=== PATIENT | male | born 1990 | race Caucasian/White ===

== ENCOUNTER 2020-12-29 15:59 | Observation (INO) ==
[2020-12-29 17:19] LABS: Basophils % 0.1 %; Hematocrit 27.7 % (37.5-50.1); Hemoglobin 8.1 g/dL (12.9-16.9); Immature Granulocytes % 0.9 % (0-4); Lymphocytes # 0.4 K/mcL (0.6-4.6); Lymphocytes % 3.8 %; Mean Corpuscular HGB Conc 29.2 g/dL (31.6-35.5); Mean Corpuscular Hemoglobin 20.1 pg (28.0-33.3); Mean Corpuscular Volume 68.9 fL (83.0-100.0); Mean Platelet Volume 10.7 fL (9.4-12.4); Monocytes # 0.1 K/mcL (0.0-1.3); Monocytes % 1.1 %; Neutrophils # 10.5 K/mcL (1.6-8.9); Platelet Count 311 K/mcL (140-400); Red Blood Count 4.02 M/mcL (4.19-5.50); Red Cell Distribution Width 17.1 % (11.5-14.5); Segmented Neutrophils % 94.1 %
[2020-12-29 17:20] LABS: White Blood Count 11.1 K/mcL (4.3-11.1)
[2020-12-29 17:36] LABS: Anisocytosis 1+ (Not Present); Hypochromasia Present (Not Present); Microcytosis Present (Not Present); Platelet Estimate Normal (Normal)
[2020-12-29 17:37] LABS: Polychromasia 1+ (Not Present)
[2020-12-29 17:55] LABS: BUN/Creatinine Ratio 15 (6-26); Bilirubin,Direct 0.1 mg/dL (0.0-0.2); Bilirubin,Total 0.4 mg/dL (0.3-1.0); Blood Urea Nitrogen 18 mg/dL (6-20); Calcium 9.4 mg/dL (8.6-10.3); Carbon Dioxide 24 mEq/L (23-29); Chloride 104 mEq/L (98-107); Glucose 133 mg/dL (70-105); Osmolality,Calculated 288 (280-300); Potassium 4.7 mEq/L (3.5-5.1); Sodium 137 mEq/L (136-145); eGFR For African Americans > 60 (> 60); eGFR For Non-African Americans > 60 (> 60)
[2020-12-29 17:56] LABS: Alanine Aminotransferase 26 Units/L (7-52); Albumin 4.3 g/dL (3.5-5.7); Albumin/Globulin Ratio 1.8 (1.1-2.2); Alkaline Phosphatase 49 Units/L (34-104); Aspartate Amino Transferase 25 Units/L (13-39); Bilirubin,Indirect 0.3 mg/dL (0.0-1.0); Globulin 2.4 g/dL (2.4-3.5); Iron < 10 mcg/dL (65-175); Total Protein 6.7 g/dL (6.4-8.9); Transferrin 413 mg/dL (203-362)
[2020-12-29] MEDS ORDERED: rOPINIRole 1 MG TABLET PO ONE ×2 (18:22)
[2020-12-29] MEDS ORDERED: Acetaminophen 325 MG TABLET PO PRN (19:41)
[2020-12-29] MEDS ORDERED: Naloxone 0.4 MG/ML INJ IVP PRN (19:41)
[2020-12-29] MEDS ORDERED: *HR* Promethazine 25 MG/ML VIAL IM PRN (19:41)
[2020-12-29] MEDS ORDERED: Ondansetron 4 MG/2 ML VIAL IVP PRN (19:41)
[2020-12-29] MEDS ORDERED: Isovue-370 500 ML BOTTLE IVP ONE (19:45)
[2020-12-29] MEDS: Ringers Solution, Lactated 1,000 ML IVC SCH (20:43)
[2020-12-29] MEDS ORDERED: tiZANidine 4 MG TABLET PO ONE (21:07)
[2020-12-29] MEDS ORDERED: Iron Sucrose Complex 200 MG in 0.9 % Sodium Chloride 100 ML IVPB ONE (21:08)
[2020-12-29] MEDS: Melatonin 3 MG TABLET PO PRN (23:45)
[2020-12-29] MEDS: Nicotine 21 MG PATCH.TD24 TD SCH (23:45)
[2020-12-29] MEDS: *HR* OxyCODONE Immed Rel 5 MG TABLET PO PRN (23:49)
[2020-12-30 03:30] LABS: Basophils % 0.1 %; Hematocrit 26.1 % (37.5-50.1); Hemoglobin 7.7 g/dL (12.9-16.9); Immature Granulocytes % 0.8 % (0-4); Immature Reticulocyte % 43.6 % (11.0-38.0); Lymphocytes # 0.9 K/mcL (0.6-4.6); Lymphocytes % 4.9 %; Mean Corpuscular HGB Conc 29.5 g/dL (31.6-35.5); Mean Corpuscular Hemoglobin 20.4 pg (28.0-33.3); Mean Platelet Volume 10.5 fL (9.4-12.4); Monocytes # 1.1 K/mcL (0.0-1.3); Monocytes % 6.1 %; Neutrophils # 15.8 K/mcL (1.6-8.9); Platelet Count 276 K/mcL (140-400); Red Blood Count 3.78 M/mcL (4.19-5.50); Red Cell Distribution Width 17.1 % (11.5-14.5); Retculocyte # 0.06 M/mcL (0.05-0.10); Reticulocyte % 1.5 % (1.6-2.8); Segmented Neutrophils % 88.1 %
[2020-12-30 03:39] LABS: INR 1.1; Prothrombin Time 12.7 Seconds (9.4-12.1)
[2020-12-30 03:47] LABS: Alanine Aminotransferase 23 Units/L (7-52); Albumin 4.1 g/dL (3.5-5.7); Albumin/Globulin Ratio 1.8 (1.1-2.2); Alkaline Phosphatase 46 Units/L (34-104); Aspartate Amino Transferase 18 Units/L (13-39); BUN/Creatinine Ratio 14 (6-26); Bilirubin,Total 0.4 mg/dL (0.3-1.0); Blood Urea Nitrogen 17 mg/dL (6-20); Carbon Dioxide 26 mEq/L (23-29); Chloride 105 mEq/L (98-107); Chol/HDL Ratio 3.1 (0-4.9); Cholesterol 121 mg/dL (< 200); Globulin 2.3 g/dL (2.4-3.5); Glucose 143 mg/dL (70-105); HDL Cholesterol 39 mg/dL (40-59); LDL Cholesterol,Calculated 69 mg/dL (< 100); Magnesium 1.8 mg/dL (1.6-2.6); Osmolality,Calculated 290 (280-300); Phosphorous 4.6 mg/dL (2.7-4.5); Potassium 3.9 mEq/L (3.5-5.1); Sodium 138 mEq/L (136-145); Total Protein 6.4 g/dL (6.4-8.9); Triglycerides 66 mg/dL (< 150); eGFR For African Americans > 60 (> 60); eGFR For Non-African Americans > 60 (> 60)
[2020-12-30 03:49] LABS: White Blood Count 17.9 K/mcL (4.3-11.1)
[2020-12-30] MEDS: Ringers Solution, Lactated 1,000 ML IVC SCH (04:09)
[2020-12-30 04:11] LABS: Folate 5.8 ng/mL (3.0-16.0)
[2020-12-30 04:40] LABS: Hypochromasia Present (Not Present); Microcytosis Present (Not Present); Platelet Estimate Normal (Normal)
[2020-12-30 07:09] LABS: Bilirubin,Urine Negative (Negative); Blood,Urine Negative (Negative); Clarity,Urine Clear (Clear); Color,Urine Light-Yellow (Yellow); Glucose,Urine (UA) Normal (Normal); Ketones,Urine Negative (Negative); Leukocyte Esterase,Urine Negative (Negative); Nitrite,Urine Negative (Negative); PH,Urine 6.5 pH Units (5.0-8.0); Protein,Urine Negative (Neg-Trace); Urobilinogen,Urine Normal (Normal)
[2020-12-30] MEDS: Nicotine 21 MG PATCH.TD24 TD SCH (09:41)
[2020-12-30] MEDS ORDERED: ARIPiprazole 10 MG TABLET PO SCH (10:30)
[2020-12-30] MEDS: FLUoxetine 20 MG CAPSULE PO SCH (11:49)
[2020-12-30] MEDS: tiZANidine 4 MG TABLET PO PRN ×2 (13:32→20:40)
[2020-12-30] MEDS: Gabapentin 400 MG CAPSULE PO SCH (13:32)
[2020-12-30] MEDS ORDERED: tiZANidine 4 MG TABLET PO SCH (15:00)
[2020-12-30] MEDS ORDERED: SODIUM CHLORIDE/NAHCO3/KCL/PEG 4,000 ML SOLN.RECON PO ONE (17:00)
[2020-12-30 17:09] LABS: Adenovirus Not Detected (Not Detect); Bordetella Pertussis Not Detected (Not Detect); Chlamydophila pneumoniae Not Detected (Not Detect); Coronavirus 229E Not Detected (Not Detect); Coronavirus HKU1 Not Detected (Not Detect); Coronavirus NL63 Not Detected (Not Detect); Coronavirus OC43 Not Detected (Not Detect); Human Metapneumovirus Not Detected (Not Detect); Human Rhinovirus/Enterovirus DETECTED (Not Detect); Influenza A Subtype 2009 H1 Not Detected (Not Detect); Influenza B Not Detected (Not Detect); Mycoplasma pneumoniae Not Detected (Not Detect); Parainfluenza Virus 1 Not Detected (Not Detect); Parainfluenza Virus 2 Not Detected (Not Detect); Parainfluenza Virus 3 Not Detected (Not Detect); Parainfluenza Virus 4 Not Detected (Not Detect); Respiratory Syncytial Virus Not Detected (Not Detect); SARS-CoV-2 Not Detected (Not Detect)
[2020-12-30] MEDS: Pantoprazole 40 MG VIAL IVP SCH (18:00)
[2020-12-30] MEDS: *HR* OxyCODONE Immed Rel 5 MG TABLET PO PRN (20:40)
[2020-12-30] MEDS: rOPINIRole 0.25 MG TABLET PO SCH (20:40)
[2020-12-30] MEDS ORDERED: Gabapentin 400 MG CAPSULE PO SCH (21:00)
[2020-12-30] MEDS: Melatonin 3 MG TABLET PO PRN (23:56)
[2020-12-31 05:21] LABS: Basophils % 0.5 %; Eosinophils # 0.1 K/mcL (0.0-0.6); Eosinophils % 0.8 %; Hematocrit 26.1 % (37.5-50.1); Hemoglobin 7.3 g/dL (12.9-16.9); Immature Granulocytes % 0.7 % (0-4); Lymphocytes # 2.3 K/mcL (0.6-4.6); Lymphocytes % 30.6 %; Mean Corpuscular Hemoglobin 19.6 pg (28.0-33.3); Mean Platelet Volume 10.5 fL (9.4-12.4); Monocytes # 0.6 K/mcL (0.0-1.3); Monocytes % 7.9 %; Neutrophils # 4.5 K/mcL (1.6-8.9); Nucleated Red Blood Cells 0.3 /100 WBC (0); Platelet Count 206 K/mcL (140-400); Red Blood Count 3.73 M/mcL (4.19-5.50); Red Cell Distribution Width 17.1 % (11.5-14.5); Segmented Neutrophils % 59.5 %; White Blood Count 7.6 K/mcL (4.3-11.1)
[2020-12-31] MEDS: Pantoprazole 40 MG VIAL IVP SCH ×2 (05:23→17:00)
[2020-12-31 05:37] LABS: BUN/Creatinine Ratio 11 (6-26); Blood Urea Nitrogen 14 mg/dL (6-20); Calcium 8.2 mg/dL (8.6-10.3); Carbon Dioxide 28 mEq/L (23-29); Chloride 108 mEq/L (98-107); Glucose 92 mg/dL (70-105); Magnesium 1.8 mg/dL (1.6-2.6); Osmolality,Calculated 290 (280-300); Potassium 3.9 mEq/L (3.5-5.1); Sodium 140 mEq/L (136-145); eGFR For African Americans > 60 (> 60); eGFR For Non-African Americans > 60 (> 60)
[2020-12-31 05:42] LABS: Anisocytosis 1+ (Not Present); Hypochromasia Present (Not Present); Microcytosis Present (Not Present); Platelet Estimate Normal (Normal); Poikilocytosis 1+ (Not Present)
[2020-12-31] MEDS: ARIPiprazole 10 MG TABLET PO SCH (07:49)
[2020-12-31] MEDS: tiZANidine 4 MG TABLET PO PRN ×2 (07:49→20:53)
[2020-12-31] MEDS: Gabapentin 400 MG CAPSULE PO SCH ×2 (07:49→15:16)
[2020-12-31] MEDS: FLUoxetine 20 MG CAPSULE PO SCH (07:49)
[2020-12-31] MEDS: Nicotine 21 MG PATCH.TD24 TD SCH (07:49)
[2020-12-31] MEDS ORDERED: Iron Sucrose Complex 200 MG in 0.9 % Sodium Chloride 100 ML IVPB SCH (09:00)
[2020-12-31] MEDS ORDERED: *HR* Propofol 500 MG/50 ML BOTTLE IVP ONE (10:32)
[2020-12-31] MEDS ORDERED: Lidocaine -MPF 2% 5 ML VIAL SQ ONE (10:32)
[2020-12-31] MEDS ORDERED: hydrOXYzine pamoate 25 MG CAPSULE PO PRN (17:13)
[2020-12-31] MEDS: rOPINIRole 0.25 MG TABLET PO SCH (20:53)
[2020-12-31] MEDS: Melatonin 3 MG TABLET PO PRN (22:06)
[2021-01-01 02:19] LABS: Hematocrit 28.1 % (37.5-50.1); Hemoglobin 7.8 g/dL (12.9-16.9)
[2021-01-01] MEDS: Pantoprazole 40 MG VIAL IVP SCH (05:37)
[2021-01-01 07:38] VITALS: BP 112/68
[2021-01-01] MEDS: Nicotine 21 MG PATCH.TD24 TD SCH (08:25)
[2021-01-01] MEDS: ARIPiprazole 10 MG TABLET PO SCH (08:26)
[2021-01-01] MEDS: FLUoxetine 20 MG CAPSULE PO SCH (08:26)
[2021-01-01] MEDS: Gabapentin 400 MG CAPSULE PO SCH (08:26)
[2021-01-01] MEDS ORDERED: Ferumoxytol 510 MG in 0.9 % Sodium Chloride 100 ML IVPB ONE (09:00)
[2021-01-02 10:08] LABS: Immunoglobulin A (CELIAC) 226 mg/dL (68-408)
[2021-01-02 10:20] LABS: Tissue Transglutaminase IgA <2 U/mL (0-3)
== END 2021-01-01 10:33 | disposition home or self-care (01) ==
LOC: EMEROOARM 15:59 → 3ANU 15:59 → SUATTDRO 18:34 → 3ANU 20:24
PROVIDERS: ADMIT Internal Medicine; ATTEND Internal Medicine
PROC: ENDOEBX (2020-12-31 15:10)